=== PATIENT | male | born 1930 | race Two or more races ===

== ENCOUNTER 2019-03-15 05:29 | Inpatient (IN) | payer MEDICAID, OTHER ==
[~2019-03-15] VITALS: Ht 167.6 cm; Wt 58.5 kg
--- NOTE | 2019-03-15 05:55 | NUR ---
BIBPA. C/O "GEN WEAKNESS, +N/V. FEVER" -SOB VSS
[2019-03-15] MEDS ORDERED: ONDANSETRON HCL/PF 4 MG/2 ML VIAL IV ONE (06:00)
[2019-03-15] MEDS ORDERED: ACETAMINOPHEN ES 500 MG TABLET PO ONE (06:00)
[2019-03-15] MEDS ORDERED: ACETAMINOPHEN ES 500 MG TABLET ONE (06:08)
[2019-03-15] MEDS ORDERED: ONDANSETRON HCL/PF 4 MG/2 ML VIAL ONE (06:08)
[2019-03-15 06:12] LABS: BASOPHILS % (AUTO) 0.3 % (0.0-2.0); EOSINOPHILS % (AUTO) 0.1 % (0.0-6.0); HEMATOCRIT 32 % (39-51); HEMOGLOBIN 10.6 g/dL (13.5-17.5); LYMPHOCYTES # (AUTO) 1.1 /CMM (0.8-4.8); LYMPHOCYTES % (AUTO) 15.9 % (20.0-44.0); MEAN CORPUSCULAR HGB CONC 34 g/dl (31.0-36.0); MEAN CORPUSCULAR VOLUME 96 fL (80-96); MONOCYTES % (AUTO) 15.4 % (2.0-12.0); NEUTROPHILS # (AUTO) 4.6 /CMM (1.8-8.9); NEUTROPHILS % (AUTO) 68.3 % (43.0-81.0); PLATELET COUNT (AUTO) 142 /CMM (150-450); RED BLOOD CELL COUNT(AUTO) 3.28 MIL/uL (4.5-6.0); WHITE BLOOD COUNT (AUTO) 6.8 K/uL (4.3-11.0)
--- NOTE | 2019-03-15 06:18 | NUR ---
PT ABLE TO PROVIDE URINE SAMPLE. URINE SENT TO LAB.
[2019-03-15 06:21] LABS: CARBON DIOXIDE 28 mmol/L (21-32); CHLORIDE 106 mmol/L (98-107); CREATININE 0.6 mg/dL (0.6-1.3); GLUCOSE 118 mg/dL (74-106); POTASSIUM 3.9 mmol/L (3.5-5.1); SODIUM SERUM 141 mmol/L (136-145); UREA NITROGEN, BLOOD 21 mg/dL (7-18)
[2019-03-15 06:25] LABS: APPEARANCE,URINE Clear (CLEAR); BILIRUBIN,URINE Negative (NEGATIVE); BLOOD, URINE Moderate Ery/uL (NEGATIVE); COLOR,URINE Dark (YELLOW); KETONES,URINE Negative (NEGATIVE); LEUKOCYTE ESTERASE ,URINE Negative (NEGATIVE); NITRITE, URINE Negative (NEGATIVE); PH,URINE 5.5 (5.0-8.0); PROTEIN,URINE 30 mg/dl (NEGATIVE); UGLUCOSE Negative (NEGATIVE)
[2019-03-15] MEDS ORDERED: IV NS 0.9% 1,000 ML IV ONE (06:30)
[2019-03-15 06:34] LABS: ALANINE AMINOTRANSFERASE 56 U/L (12-78); ALBUMIN 2.5 g/dL (3.4-5.0); ALKALINE PHOSPHATASE 163 U/L (46-116); ASPARTATE AMINOTRANSFERASE 108 U/L (15-37); B-TYPE NATRIURETIC PEPTIDE 1052 PG/ML (0-125); BILIRUBIN,DIRECT 0.5 mg/dL (0.0-0.2)
[2019-03-15 06:55] LABS: BACTERIA,URINE None seen /HPF (None Seen); RBC,URINE NONE SEEN /HPF (0-2); SQUAMOUS EPITHELIAL CELL,UR Few /HPF (None Seen); WBC,URINE NONE SEEN /HPF (0-3)
--- NOTE | 2019-03-15 07:21 | NUR ---
RECEIVED PT FROM TONEY MARTINES FOR AMY, AWAITING CHEST XRAY RESULT.
[2019-03-15 07:30] LABS: LYMPHOCYTES % (MANUAL) 12 % (16-48); MONOCYTES % (MANUAL) 7 % (0-11.0); NEUTROPHILS % (MANUAL) 81 (42-76)
[2019-03-15] MEDS ORDERED: MULT-447 PO (08:02)
[2019-03-15] MEDS ORDERED: FERR325T23 PO (08:02)
[2019-03-15] MEDS ORDERED: ASCO500T9 PO (08:02)
[2019-03-15] MEDS ORDERED: CHOL100044 PO (08:02)
[2019-03-15] MEDS ORDERED: SENN-168 PO (08:02)
[2019-03-15] MEDS ORDERED: HALO1TAB5 PO (08:02)
[2019-03-15] MEDS ORDERED: ACET-2605 PO (08:02)
[2019-03-15] MEDS ORDERED: CALC-7 PO (08:02)
[2019-03-15] MEDS ORDERED: FINA5TAB11 PO (08:02)
[2019-03-15] MEDS ORDERED: DOCU-141 PO (08:02)
[2019-03-15] MEDS ORDERED: AMIN30LI27 PO (08:02)
[2019-03-15] MEDS ORDERED: POLY15DR40 EACHEYE (08:02)
--- NOTE | 2019-03-15 10:31 | NUR ---
REPORT GIVEN TO TONEY GARCIA FOR AMY.
[2019-03-15 11:00] VITALS: BP 96/57
[2019-03-15] MEDS ORDERED: POLYVINYL ALCOHOL 15 ML BOTTLE EACHEYE PRN (11:00)
--- NOTE | 2019-03-15 11:00 | NUR ---
TELE/SLUBBER MACHINE OPERATOR PATIENT ADMITTED FROM ER AND TRANSFERRED TO FLOOR VIA STRETCHER ACCOMPANIED BY EMT AND RN. NO SIGNS OF ACUTE DISTRESS. NO COMPLAIN OF PAIN OR DISCOMFORT. ON TELE MONITOR NOTED WITH SR WITH RATE OF 89. A/O X 1, NEPALI SPEAKER. ALL NEEDS ATTENDED TO AT THIS TIME. CALL LIGHT WITHIN REACH. WILL CONTINUE TO MONITOR TO ENSURE SAFETY.
[2019-03-15 11:41] VITALS: BP 96/57
[2019-03-15] MEDS ORDERED: ACETAMINOPHEN 325 MG TABLET PO PRN (12:30)
[2019-03-15] MEDS ORDERED: ONDANSETRON HCL/PF 4 MG/2 ML VIAL IVP PRN (12:30)
[2019-03-15] MEDS ORDERED: Z GUARD REMEDY 2 OZ OINT TP PRN (12:30)
[2019-03-15] MEDS ORDERED: ZOLPIDEM TARTRATE 5 MG TABLET PO PRN (12:30)
[2019-03-15] MEDS ORDERED: HYDROCODONE/APAP 5/325MG 1 EACH TABLET PO PRN (12:30)
[2019-03-15] MEDS ORDERED: MAGNESIUM HYDROXIDE 30 ML UDC PO PRN (12:30)
[2019-03-15] MEDS ORDERED: MAG HYDROX/AL HYDROX/SIMETH 30 ML UDC PO PRN (12:30)
--- NOTE | 2019-03-15 12:52 | NUR ---
TELE/RN SPOKE WITH AMADA FROM PHARM AND NOTIFIED PATIENT'S HALDOL PO NOT AVAILABLE IN BIN OR IN OMNICELL AND ZITHROMAX IVPB NOT AVAILABLE EITHER IN BIN AND DUE AT 1PM. PER AMADA WILL SEND IN HALF HOUR IF NOT AVAILABLE TO CALL HER BACK.
[2019-03-15] MEDS: IV NS 0.9% 1,000 ML IV PRN (12:56)
[2019-03-15] MEDS: PROSOURCE / PROSTAT (PYXIS) 30 ML UDC PO SCH ×2 (12:56→16:59)
[2019-03-15] MEDS: CALCIUM CARB 250MG /VITAMIN D 1 UDTAB PO SCH (12:56)
[2019-03-15] MEDS: ENOXAPARIN SODIUM 40 MG/0.4 ML DISP.SYRIN SQ SCH (12:57)
[2019-03-15] MEDS ORDERED: AZITHROMYCIN 500 MG in IV D5W 250 ML IV SCH (13:00)
[2019-03-15] MEDS: HALOPERIDOL LACTATE 10 MG/5 ML UDC PO SCH ×2 (13:13→16:59)
[2019-03-15] MEDS ORDERED: CEFTRIAXONE 1 G in IV D5W 50 ML IV SCH (14:00)
[2019-03-15 16:00] VITALS: BP 100/56
[2019-03-15] MEDS: ASCORBIC ACID 500 MG TABLET PO SCH (16:59)
[2019-03-15] MEDS: FINASTERIDE (5 MG) 5 MG TABLET PO SCH (16:59)
--- NOTE | 2019-03-15 18:33 | NUR ---
MS/RN CLOSING NOTE PATIENT IN BED IN STABLE CONDITION. A/O X 1, NO SIGNS OF ACUTE DISTRESS. NO COMPLAIN OF PAIN OR DISCOMFORT. ALL NEEDS ATTENDED TO. CALL LIGHT WITHIN REACH. WILL ENDORSE TO NEXT SHIFT FOR CONTINUITY OF CARE.
[2019-03-15 20:00] VITALS: BP 108/56
[2019-03-15] MEDS: PIPERACILLIN /TAZOBACTAM 3.375 G in IV D5W 50 ML IV SCH (20:22)
--- NOTE | 2019-03-15 20:30 | NUR ---
RN NOTES RECEIVED PT. FROM ANOTHER NURSE, PT IS AWAKE A/OX2-3, PER. STRONG (RN) PT. TEMP 99.8 AND HE GIVE TYLENOL 650MG PO, DENIES PAIN NO SOB , CALL LIGHT WITHIN REACH, SIDERAILSUPX2, CONTINUE TO MONITOR
[2019-03-15] MEDS: SENNOSIDES 8.6 MG TABLET PO SCH (21:37)
--- NOTE | 2019-03-15 22:30 | NUR ---
RN NOTES CHECKED PT. TEMPERATURE IT WENT DOWN TO 99.3, CONTINUE TO MONITOR
[2019-03-16] MEDS: PIPERACILLIN /TAZOBACTAM 3.375 G in IV D5W 50 ML IV SCH ×2 (02:16→08:49)
[2019-03-16 06:20] LABS: BASOPHILS # (AUTO) 0.1 /CMM (0.0-0.2); BASOPHILS % (AUTO) 1.5 % (0.0-2.0); EOSINOPHILS % (AUTO) 0.1 % (0.0-6.0); HEMATOCRIT 29 % (39-51); HEMOGLOBIN 9.8 g/dL (13.5-17.5); LYMPHOCYTES # (AUTO) 2.4 /CMM (0.8-4.8); LYMPHOCYTES % (AUTO) 32.3 % (20.0-44.0); MEAN CORPUSCULAR HGB CONC 34 g/dl (31.0-36.0); MEAN CORPUSCULAR VOLUME 95 fL (80-96); MONOCYTES % (AUTO) 13.4 % (2.0-12.0); NEUTROPHILS # (AUTO) 3.9 /CMM (1.8-8.9); NEUTROPHILS % (AUTO) 52.7 % (43.0-81.0); PLATELET COUNT (AUTO) 127 /CMM (150-450); RED BLOOD CELL COUNT(AUTO) 3.07 MIL/uL (4.5-6.0); WHITE BLOOD COUNT (AUTO) 7.5 K/uL (4.3-11.0)
--- NOTE | 2019-03-16 06:31 | NUR ---
RN NOTES SLEEPING BUT AROUSABLE, NO PAIN NOTED, NO SOB, MORNING CARE RENDERED, CALL LIGHT WITHIN REACH, ISDERAILSUPX2, PT. NEEDS ATTENDED
[2019-03-16 06:41] LABS: ALANINE AMINOTRANSFERASE 89 U/L (12-78); ALBUMIN 2.2 g/dL (3.4-5.0); ALKALINE PHOSPHATASE 146 U/L (46-116); ASPARTATE AMINOTRANSFERASE 285 U/L (15-37); BILIRUBIN,TOTAL 0.8 mg/dL (0.2-1.0); CALCIUM, SERUM 8.3 mg/dL (8.5-10.1); CARBON DIOXIDE 28 mmol/L (21-32); CHLORIDE 103 mmol/L (98-107); CREATININE 0.7 mg/dL (0.6-1.3); GLUCOSE 92 mg/dL (74-106); MAGNESIUM 1.8 mg/dL (1.8-2.4); POTASSIUM 3.9 mmol/L (3.5-5.1); SODIUM SERUM 137 mmol/L (136-145); TOTAL PROTEIN, SERUM 5.4 g/dL (6.4-8.2); UREA NITROGEN, BLOOD 13 mg/dL (7-18)
[2019-03-16 06:49] LABS: CHOLESTEROL 75 mg/dL (<200); HDL CHOLESTEROL 29 mg/dL (40-60); LDL 36 mg/dL (0-99); TRIGLYCERIDES 62 mg/dL (30-150)
--- NOTE | 2019-03-16 07:45 | NUR ---
RN OPENING NOTES RECEIVED PATIENT RESTING IN BED, AWAKE. A/O X 2, SWISS SPEAKING. NOT IN ANY FORM OF DISTRESS, NO SOB. NO S/S OF PAIN OR DISCOMFORT AT THIS TIME. IV ACCESS INTACT AND PATENT, NO REDNESS, NO INFILTRATION NOTED. SAFETY PRECAUTIONS IMPLEMENTED; CALL LIGHT WITHIN REACH, BED LOWEST POSITION, BED LOCKED, SIDE RAILS UP X2. WILL CONTINUE TO MONIOTR ACCORDINGLY
[2019-03-16 08:00] VITALS: BP 109/55
[2019-03-16] MEDS: PROSOURCE / PROSTAT (PYXIS) 30 ML UDC PO SCH ×3 (08:38→17:01)
[2019-03-16] MEDS: MULTIVIT W/MINERALS 1 TAB TABLET PO SCH (08:39)
[2019-03-16] MEDS: CHOLECALCIFEROL 1,000 UNIT TABLET (VIT D3) PO SCH (08:39)
[2019-03-16] MEDS: ASCORBIC ACID 500 MG TABLET PO SCH ×2 (08:39→17:00)
[2019-03-16] MEDS: DOCUSATE SODIUM 100 MG CAPSULE PO SCH (08:39)
[2019-03-16] MEDS: FERROUS SULFATE (325 MG) 325 MG/TAB TABLET PO SCH (08:39)
[2019-03-16] MEDS: HALOPERIDOL LACTATE 10 MG/5 ML UDC PO SCH ×3 (08:40→17:01)
[2019-03-16] MEDS: ENOXAPARIN SODIUM 40 MG/0.4 ML DISP.SYRIN SQ SCH (08:46)
[2019-03-16] MEDS: TOBRAMYCIN/DEXAMETH OPHTH DORPS 2.5 ML BOTTLE EACHEYE SCH ×4 (09:21→22:02)
[2019-03-16] MEDS: IV NS 0.9% 1,000 ML IV PRN (10:02)
[2019-03-16] MEDS: CALCIUM CARB 250MG /VITAMIN D 1 UDTAB PO SCH (12:56)
[2019-03-16] MEDS: PIPERACILLIN /TAZOBACTAM 3.375 G in IV D5W 100 ML IV SCH ×2 (14:15→22:02)
[2019-03-16 16:00] VITALS: BP 113/64
[2019-03-16] MEDS: FINASTERIDE (5 MG) 5 MG TABLET PO SCH (17:00)
--- NOTE | 2019-03-16 19:02 | NUR ---
RN CLOSING NOTES PATIENT IN STABLE CONDITION. ALL NEEDS ATTENDED AND PROVIDED. ALL DUE MEDS GIVEN ORDERED. ASSISTED WITH ADLS. TURNED AND REPOSITIONED PATIENT EVERY 2HRS NEEDED. KEPT PATIENT SAFE AND COMFORTABLE. BED IN LOW/LOCKED POSITION, SIDERAILSUPX2, CALL LIGHT IN REACH. ENDORSED TO NIGHT RN FOR AMY.
--- NOTE | 2019-03-16 19:29 | NUR ---
MS/RN OPENING NOTES PT RECEIVED ASLEEP, RESPONSIVE TO NAME AND TOUCH. ON 2LPM O2 VIA NC, BREATHING EVEN AND UNLABORED. NO S/S OF SOB OR PAIN AT THIS TIME. A/OX2. IV TO LEFT WRIST PATENT AND INTACT RUNNING IVF ORDERED. BED IN LOW/LOCKED POSITION WITH CALL LIGHT IN REACH. BILAT. UPPER SIDE RAILS IN PLACE AND BED ALARM ON FOR SAFETY. SEMI FOWLERS IN BED. WILL CONTINUE TO MONITOR
[2019-03-16 20:00] VITALS: BP 100/84
[2019-03-16 20:16] VITALS: BP 100/54
--- NOTE | 2019-03-16 21:04 | NUR ---
MS/RN NOTES CALLED PT'S BROTHER, MUSHTAQ HARRISON TO OBTAIN VERBAL CONSENT FOR CT ABDOMEN WWO CONTRAST PT IS CONFUSED. NO ANSWER AND UNABLE TO LEAVE VOICEMAIL.
[2019-03-16] MEDS: SENNOSIDES 8.6 MG TABLET PO SCH (22:00)
[2019-03-17] MEDS: TOBRAMYCIN/DEXAMETH OPHTH DORPS 2.5 ML BOTTLE EACHEYE SCH ×6 (01:40→21:13)
[2019-03-17] MEDS: PIPERACILLIN /TAZOBACTAM 3.375 G in IV D5W 100 ML IV SCH ×3 (05:45→21:13)
--- NOTE | 2019-03-17 06:36 | NUR ---
MS/RN CLOSING NOTES PT ASLEEP, RESPONSIVE TO NAME. TITRATED TO ROOM AIR,SPO2 94%. BREATHING EVEN AND UNLABORED. NO S/S OF SOB OR PAIN AT THIS TIME. NO FACIAL GRIMACING NOTED. IV TO LEFT HAND PATENT AND INTACT RUNNING IVF ORDERED. AFEBRILE DURING SHIFT. 0600 TEMP= 99.0F. TURNED/REPOSITIONED Q2H. HEELS OFFLOADED. HOB ELEVATED AND BILAT. UPPER SIDE RAILS IN PLACE. BED IN LOW/LOCKED POSITION WITH CALL LIGHT IN REACH. UNABLE TO OBTAIN CONSENT FROM FAMILY MEMBER FOR CT ABD. WWO CONTRAST. WILL ENDORSE TO DAY SHIFT RN AMY.
--- NOTE | 2019-03-17 07:13 | NUR ---
RN MS OPENING NOTES RECEIVED PT AWAKE IN BED IN NO ACUTE SIGNS OF DISTRESS. HOB ELEVATED. A/O X1-2. FRENCH SPEAKING, CALM, QUIET AND DENIES PAIN OR ANY DISCOMFORTS AT THIS TIME. ON ROOM AIR, BREATHING EVEN AND UNLABORED. IV ACCESS ON LEFT HAND G#22 INTACT AND PATENT, IVF OF NS @ 75ML/HR INFUSING WELL, NO S/S OF INFILTRATIONS NOTED. SAFETY MEASURES IN PLACE. BED IN LOW LOCKED POSITION WITH SR UP X2. CALL LIGHT WITHIN REACH. WILL CONTINUE TO MONITOR PT ACCORDINGLY.
[2019-03-17] MEDS: IV NS 0.9% 1,000 ML IV PRN ×2 (07:29→22:23)
[2019-03-17 08:00] VITALS: BP 104/56
--- NOTE | 2019-03-17 08:28 | NUR ---
RN NOTES CALLED PT'S BROTHER CHRISTY LANDIN AT [employer] # [phone] X 2 ALREADY THIS MORNING TO OBTAIN CONSENT FOR CT ABDOMEN WITH CONTRAST BUT HIS PHONE JUST KEEPS RINGING AND UN-ABLE TO LEAVE MESSAGE. INFORMED SUPERVISOR FABRICATION AND ASSEMBLY TE WITH ORDER TO TRY TO CALL HIM LATER THIS MORNING AND IF UN-ABLE TO REACH FAMILY, THEN CHANGE ORDER TO CT OF ABDOMEN W/O CONTRAST.
[2019-03-17] MEDS: HALOPERIDOL LACTATE 10 MG/5 ML UDC PO SCH ×3 (09:00→17:36)
[2019-03-17] MEDS: MULTIVIT W/MINERALS 1 TAB TABLET PO SCH (09:00)
[2019-03-17] MEDS: ASCORBIC ACID 500 MG TABLET PO SCH ×2 (09:00→17:35)
[2019-03-17] MEDS: FERROUS SULFATE (325 MG) 325 MG/TAB TABLET PO SCH (09:00)
[2019-03-17] MEDS: DOCUSATE SODIUM 100 MG CAPSULE PO SCH (09:00)
[2019-03-17] MEDS: PROSOURCE / PROSTAT (PYXIS) 30 ML UDC PO SCH ×3 (09:00→17:36)
[2019-03-17] MEDS: CHOLECALCIFEROL 1,000 UNIT TABLET (VIT D3) PO SCH (09:00)
[2019-03-17] MEDS: ENOXAPARIN SODIUM 40 MG/0.4 ML DISP.SYRIN SQ SCH (09:28)
--- NOTE | 2019-03-17 10:48 | NUR ---
RN NOTES TRIED TO CONTACT/CALLED PT'S BROTHER CHRISTY LANDIN BUT UNABLE TOREACH HIM AND HIS PHONE NOT ACCEPTING TO LEAVE MESSAGE. CT ABDOMEN W/O CHANGE TO WITHOUT CONTRAST PER LABORATORY EQUIPMENT CLEANER TE.
--- NOTE | 2019-03-17 11:21 | NUR ---
RN NOTES MD COLLAZO WITH ORDER TO DO MRCP FOR PT TODAY. SPOKE TO PT WITH LATVIAN SPEAKING STAFF AND PT VERBALIZED THAT HE HAS NO METAL IN THE BODY, UNABLE TO SAY IF HE HAS MRI IN THE PAST. CALLED [facility] TO VERIFY, SPOKE TO AUNG RUTH AND SAID THAT THEY THEMSELVES UNABLE TO CONTACT PT'S JAY HARRISON. I ASKED IF PT HAS METAL IN THE BODY AND SHE SAID "NONE" AND IT'S OK TO DO MRCP W/O CONTRAST.
--- NOTE | 2019-03-17 11:40 | NUR ---
RN NOTES DATA CONTROL ASSISTANT TE CAME AND EVALUATE PT WITH ORDER TO HOLD CT ABDOMEN W/O CONTRAST AND PROCEED WITH MRCP W/O CONTRAST TODAY.
[2019-03-17] MEDS: CALCIUM CARB 250MG /VITAMIN D 1 UDTAB PO SCH (12:00)
--- NOTE | 2019-03-17 12:02 | NUR ---
RN NOTES PATIENT PICKED UP BY MANAGER PULMONARY VIA WHEELCHAIR FOR MRCP W/O CONTRAST.
--- NOTE | 2019-03-17 12:48 | NUR ---
RN NOTES PT RETURNED FROM MRCP IN NO ACUTE SIGNS OF DISTRESS. MED ALERT BRACELET REMOVED BY BRIDGE CARPENTER DURING PROCEDURE. MED ALERT BRACELET PLACED BACK TO PT'S RIGHT LOWER ARM WITNESSED BY AUNG MARCH AND ONE RATE QUOTING OPERATOR DRAWING BLOOD AT THAT TIME. WILL F/U RESULTS OF MRCP.
[2019-03-17 13:19] LABS: ALBUMIN 2.2 g/dL (3.4-5.0); BILIRUBIN,DIRECT 0.3 mg/dL (0.0-0.2); BILIRUBIN,TOTAL 0.8 mg/dL (0.2-1.0); TOTAL PROTEIN, SERUM 5.5 g/dL (6.4-8.2)
[2019-03-17 16:00] VITALS: BP 100/49
--- NOTE | 2019-03-17 16:01 | NUR ---
RN NOTES DR CHEL CARTAGENA WITH ORDER TO DO HIDA SCAN FOR PATIENT. PT IS CONFUSED AND UNABLE TO SIGN CONSENT. TRIED TO CONTACT BROTHER BUT UNABLE TO REACH HIM NOR LEAVE MESSAGE ON HIS PHONE. DR CARTAGENA MADE AWRE AND INFORMED THAT 2 MD'S NEEDS TO SIGN CONSENT FOR THE PROCEDURE.
[2019-03-17] MEDS: FINASTERIDE (5 MG) 5 MG TABLET PO SCH (17:35)
--- NOTE | 2019-03-17 18:20 | NUR ---
RN NOTES CHEL CARRILLO CAME CAME, SEEN AND EVALUATED PT. NM HIDA SCAN WILL BE DONE TOMORROW. PT WILL BE NPO POST MIDNIGHT.
--- NOTE | 2019-03-17 18:45 | NUR ---
MS RN CLOSING NOTES PT IN BED AWAKE AND RESTING AT MODERATE HIGH BACKREST POSITION. A/O X1-2. ROMANSH SPEAKING. CALMED WITH PERIOD OF CONFUSION NOTED. ON ROOM AIR, TOLERATING WELL WITH NO SOB NOTED THROUGHOUT THE DAY. PT FOR NM HIDA SCAN TOMORROW, WILL ENFORCE NPO POST MIDNIGHT. IV ACCESS ON LEFT HAND G#22 INTACT AND PATENT, IVF OF NS @ 75ML/HR INFUSING WELL, NO S/S OF INFILTRATIONS NOTED. ALL NEEDS AND CARE PROVIDED WELL. SAFETY MEASURES IN PLACE. BED IN LOW LOCKED POSITION WITH SR UP X2. CALL LIGHT WITHIN REACH. WILL ENDORSE TO EDISCOVERY PROJECT MANAGER NURSE FOR AMY.
--- NOTE | 2019-03-17 19:00 | NUR ---
RN MS OPENING NOTES RECEIVED PATIENT IN BED AWAKE ALERT AND ORIENTED X1-2 , ABLE TO POINT TO MAKE NEEDS KNOWN, RESPIRATIONS EVEN AND UNLABORED WITH EQUAL RISE AND FALL OF CHEST, DENIES ANY PAIN OR DISCOMFORT AT THIS TIME, REMAINS AFEBRILE AT THIS TIME, URINAL AT BEDSIDE WITHIN REACH, IV SITE INSERTED TO RIGHT HAND #20 G INTACT AND PATENT, PATENT PULLED OUT PREVIOUS IV SITE, NO BLEEDING PRESENT, ORIENTED TO STAFF AND CALL LIGHT AND KEPT WITHIN REACH, SAFETY PRECAUTIONS IN PLACE, LOW BED AND LOCKED, BED ALARM IN PLACE, PATIENT WILL BE NPO AT MIDNIGHT MADE AWARE, REMAINS COMFORTABLE AT THIS TIME, ALL NEEDS ATTENDED WILL CONTINUE TO ADDRESS NEEDS THROUGHOUT SHIFT.
[2019-03-17 20:00] VITALS: BP 111/55
[2019-03-17] MEDS: SENNOSIDES 8.6 MG TABLET PO SCH (21:12)
[2019-03-18] MEDS: TOBRAMYCIN/DEXAMETH OPHTH DORPS 2.5 ML BOTTLE EACHEYE SCH ×6 (01:35→21:11)
[2019-03-18] MEDS: PIPERACILLIN /TAZOBACTAM 3.375 G in IV D5W 100 ML IV SCH ×3 (05:06→21:11)
--- NOTE | 2019-03-18 06:50 | NUR ---
RN MS CLOSING NOTES PATIENT IN BED AWAKE ALERT AND ORIENTED X1-2 , ABLE TO POINT TO MAKE NEEDS KNOWN, RESPIRATIONS EVEN AND UNLABORED WITH EQUAL RISE AND FALL OF CHEST, DENIES ANY PAIN OR DISCOMFORT AT THIS TIME, REMAINED AFEBRILE THROUGHOUT SHIFT, URINAL AT BEDSIDE WITHIN REACH, IV SITE RIGHT HAND #20 G INTACT AND PATENT, CALL LIGHT AND KEPT WITHIN REACH, SAFETY PRECAUTIONS IN PLACE, LOW BED AND LOCKED, BED ALARM IN PLACE, PATIENT IS NPO FOR HIDA SCAN, REMAINS COMFORTABLE AT THIS TIME, ALL NEEDS ATTENDED WILL CONTINUE TO ADDRESS NEEDS AND ENDORSE TO NEXT SHIFT. LEFT AND RIGHT HEEL ASSESSED NOTED REDNESS, PICTURES NOTED IN CHART AWAITING WOUND CARE CONSULT.
[2019-03-18 07:17] LABS: BASOPHILS % (AUTO) 0.2 % (0.0-2.0); EOSINOPHILS % (AUTO) 0.3 % (0.0-6.0); HEMATOCRIT 27 % (39-51); HEMOGLOBIN 9.2 g/dL (13.5-17.5); LYMPHOCYTES # (AUTO) 2.1 /CMM (0.8-4.8); LYMPHOCYTES % (AUTO) 42.4 % (20.0-44.0); MEAN CORPUSCULAR HGB CONC 34 g/dl (31.0-36.0); MEAN CORPUSCULAR VOLUME 94 fL (80-96); MONOCYTES # (AUTO) 0.6 /CMM (0.1-1.30); MONOCYTES % (AUTO) 12.5 % (2.0-12.0); NEUTROPHILS # (AUTO) 2.2 /CMM (1.8-8.9); NEUTROPHILS % (AUTO) 44.6 % (43.0-81.0); PLATELET COUNT (AUTO) 115 /CMM (150-450)
--- NOTE | 2019-03-18 07:30 | NUR ---
RN MS NOTES PT IN BED, AWAKE, ALERT TO SELF, VERBALLY RESPONSIVE, NO COMPLAINT OF PAIN, NOT IN DISTRESS, IV FLUIDS INFUSING WELL, CALL LIGHT WITHIN REACH, BED ALARM ON FOR SAFETY, KEPT COMFORTABLE IN BED, VITAL SIGNS STABLE.
[2019-03-18 07:42] LABS: ALANINE AMINOTRANSFERASE 88 U/L (12-78); ALKALINE PHOSPHATASE 150 U/L (46-116); ASPARTATE AMINOTRANSFERASE 154 U/L (15-37); BILIRUBIN,DIRECT 0.3 mg/dL (0.0-0.2); BILIRUBIN,TOTAL 0.7 mg/dL (0.2-1.0); CALCIUM, SERUM 8.3 mg/dL (8.5-10.1); CARBON DIOXIDE 26 mmol/L (21-32); CHLORIDE 104 mmol/L (98-107); CREATININE 0.5 mg/dL (0.6-1.3); GLUCOSE 90 mg/dL (74-106); MAGNESIUM 1.7 mg/dL (1.8-2.4); PHOSPHORUS 3.2 mg/dL (2.5-4.9); POTASSIUM 3.4 mmol/L (3.5-5.1); SODIUM SERUM 139 mmol/L (136-145); TOTAL PROTEIN, SERUM 5.2 g/dL (6.4-8.2); UREA NITROGEN, BLOOD 11 mg/dL (7-18)
[2019-03-18 08:00] VITALS: BP 126/58
[2019-03-18] MEDS: FERROUS SULFATE (325 MG) 325 MG/TAB TABLET PO SCH (09:00)
[2019-03-18] MEDS: ASCORBIC ACID 500 MG TABLET PO SCH ×2 (09:00→16:16)
[2019-03-18] MEDS: PROSOURCE / PROSTAT (PYXIS) 30 ML UDC PO SCH ×3 (09:00→16:17)
[2019-03-18] MEDS: CHOLECALCIFEROL 1,000 UNIT TABLET (VIT D3) PO SCH (09:00)
[2019-03-18] MEDS: HALOPERIDOL LACTATE 10 MG/5 ML UDC PO SCH ×4 (09:00→16:16)
[2019-03-18] MEDS: DOCUSATE SODIUM 100 MG CAPSULE PO SCH (09:00)
[2019-03-18] MEDS: MULTIVIT W/MINERALS 1 TAB TABLET PO SCH (09:00)
--- NOTE | 2019-03-18 09:00 | NUR ---
RN MS NOTES AM MEDS NON ADMIN, NPO STATUS DUE TO PLANNED HIDA SCAN TODAY.
[2019-03-18] MEDS: ENOXAPARIN SODIUM 40 MG/0.4 ML DISP.SYRIN SQ SCH (09:17)
[2019-03-18] MEDS ORDERED: POTASSIUM CHLORIDE 20 MEQ TAB.PRT.SR PO ONE (10:00)
--- NOTE | 2019-03-18 10:11 | NUR ---
WOUND CARE CONSULT: PT PRESENTS WITH INCONTINENCE AND THICKENED SCARRING WITH SOME CALLUSED SKIN ON FEET WITH PEELING FRAGILE SKIN TO HEELS. RECOMMENDATIONS MADE FOR SKIN PROTECTION. DISCUSSED WITH NURSING STAFF. CURRENT PRIMO SCORE IS 17. PT RUBS HIS FEET ON MATTRESS AT TIMES. WILL SEE PRN. SCOTT IN AGREEMENT WITH PLAN OF CARE.
[2019-03-18] MEDS: Magnesium 1GM/D5W 100ML PREMIX 100 ML IV SCH ×2 (10:38→11:38)
--- NOTE | 2019-03-18 11:45 | NUR ---
RN MS NOTES PT IN BED, AWAKE, ALERT AND VERBALLY RESPONSIVE, DENIES PAIN, NOT IN DISTRESS, SEEN BY DR. PECK, ORDERS GIVEN AND CARRIED OUT, PLAN FOR HIDA SCAN TODAY.
--- NOTE | 2019-03-18 13:00 | NUR ---
RN MS NOTES 1300 HALDOL NOT GIVEN, PT KEPT ON NPO AGAIN FOR SCHEDULED HIDA SCAN.
[2019-03-18] MEDS: CALCIUM CARB 250MG /VITAMIN D 1 UDTAB PO SCH (15:58)
[2019-03-18 16:00] VITALS: BP 125/73
[2019-03-18] MEDS: FINASTERIDE (5 MG) 5 MG TABLET PO SCH (16:16)
--- NOTE | 2019-03-18 18:45 | NUR ---
RN MS NOTES PT BACK FROM HIDA SCAN VIA WHEELCHAIR, TOLERATED PROCEDURE WELL, ASSISTED TO BED, MADE COMFORTABLE, IV FLUIDS INFUSING WELL, NO COMPLAINT OF PAIN, NOT IN DISTRESS, PM MEDS GIVEN ORDERED, ALL NEEDS ATTENDED.
--- NOTE | 2019-03-18 19:10 | NUR ---
MS RN NOTE RECEIVED PT IN STABLE CONDITION A/O X1-2, CURRENTLY AWAKE IN BED. NO SIGNS OF SOB OR DISTRESS, NO INDICATIONS OF PAIN. IV IN R FA IN PLACE. ALL CURRENT NEEDS ATTENDED TO. BED LOW, LOCKED, UPPER RAILS UP, BED ALARM ON, TO BE REPOSITIONED Q2H, AND CALL LIGHT WITHIN REACH WILL. CONT. TO MONITOR.
[2019-03-18 20:00] VITALS: BP 115/67
[2019-03-18 20:01] VITALS: BP 115/67
[2019-03-18] MEDS: SENNOSIDES 8.6 MG TABLET PO SCH (21:11)
[2019-03-19] MEDS: TOBRAMYCIN/DEXAMETH OPHTH DORPS 2.5 ML BOTTLE EACHEYE SCH ×4 (01:12→12:07)
[2019-03-19] MEDS: IV NS 0.9% 1,000 ML IV PRN (05:02)
[2019-03-19] MEDS: PIPERACILLIN /TAZOBACTAM 3.375 G in IV D5W 100 ML IV SCH (05:02)
--- NOTE | 2019-03-19 06:16 | NUR ---
MS RN NOTE PT IN STABLE CONDITION A/O X1-2, CURRENTLY AWAKE IN BED. NO SIGNS OF SOB OR DISTRESS, NO INDICATIONS OF PAIN. IV IN R FA IN PLACE WITH IV ATB INFUSING. ALL CURRENT NEEDS ATTENDED TO. BED LOW, LOCKED, UPPER RAILS UP, BED ALARM ON, PT REPOSITIONED Q2H, AND CALL LIGHT WITHIN REACH WILL. CONT. TO MONITOR AND ENDORSE TO NEXT SHIFT FOR AMY.
[2019-03-19 06:43] LABS: CALCIUM, SERUM 8.4 mg/dL (8.5-10.1); CARBON DIOXIDE 31 mmol/L (21-32); CHLORIDE 106 mmol/L (98-107); CREATININE 0.6 mg/dL (0.6-1.3); GLUCOSE 91 mg/dL (74-106); MAGNESIUM 1.9 mg/dL (1.8-2.4); POTASSIUM 3.7 mmol/L (3.5-5.1); SODIUM SERUM 140 mmol/L (136-145); UREA NITROGEN, BLOOD 7 mg/dL (7-18)
[2019-03-19 06:45] LABS: BASOPHILS % (AUTO) 0.3 % (0.0-2.0); EOSINOPHILS % (AUTO) 0.5 % (0.0-6.0); HEMATOCRIT 31 % (39-51); HEMOGLOBIN 10.1 g/dL (13.5-17.5); LYMPHOCYTES # (AUTO) 2.6 /CMM (0.8-4.8); LYMPHOCYTES % (AUTO) 49.3 % (20.0-44.0); MEAN CORPUSCULAR HGB CONC 33 g/dl (31.0-36.0); MEAN CORPUSCULAR VOLUME 94 fL (80-96); MONOCYTES # (AUTO) 0.7 /CMM (0.1-1.30); MONOCYTES % (AUTO) 12.3 % (2.0-12.0); NEUTROPHILS % (AUTO) 37.6 % (43.0-81.0); PLATELET COUNT (AUTO) 135 /CMM (150-450); RED BLOOD CELL COUNT(AUTO) 3.26 MIL/uL (4.5-6.0); WHITE BLOOD COUNT (AUTO) 5.4 K/uL (4.3-11.0)
--- NOTE | 2019-03-19 07:30 | NUR ---
RN MS NOTES PT IN BED, AWAKE, ALERT AND VERBALLY RESPONSIVE, NOT IN DISTRESS, NO SIGN OF PAIN, IV FLUIDS INFUSING WELL, ASSISTED WITH URINAL USE, CALL LIGHT WITHIN REACH, KEPT COMFORTABLE IN BED.
[2019-03-19 08:00] VITALS: BP 104/59
[2019-03-19] MEDS: DOCUSATE SODIUM 100 MG CAPSULE PO SCH (09:00)
[2019-03-19] MEDS: MULTIVIT W/MINERALS 1 TAB TABLET PO SCH (09:28)
[2019-03-19] MEDS: FERROUS SULFATE (325 MG) 325 MG/TAB TABLET PO SCH (09:28)
[2019-03-19] MEDS: ASCORBIC ACID 500 MG TABLET PO SCH (09:28)
[2019-03-19] MEDS: CHOLECALCIFEROL 1,000 UNIT TABLET (VIT D3) PO SCH (09:29)
[2019-03-19] MEDS: HALOPERIDOL LACTATE 10 MG/5 ML UDC PO SCH ×2 (09:30→12:06)
[2019-03-19] MEDS: PROSOURCE / PROSTAT (PYXIS) 30 ML UDC PO SCH ×2 (09:33→12:06)
[2019-03-19] MEDS: ENOXAPARIN SODIUM 40 MG/0.4 ML DISP.SYRIN SQ SCH (09:34)
--- NOTE | 2019-03-19 10:07 | NUR ---
RN MS NOTES PT IN BED, NOT IN DISTRESS, DENIES PAIN, SEEN BY DR. PECK, DISCHARGE ORDER GIVEN, PT INFORMED.
[2019-03-19] MEDS: CALCIUM CARB 250MG /VITAMIN D 1 UDTAB PO SCH (12:07)
--- NOTE | 2019-03-19 12:45 | NUR ---
RN MS NOTES PT IN BED, AWAKE, ALERT TO SELF, NO SIGN OF PAIN OR DISTRESS, SKIN ASSESSMENT AND PHOTOS DONE, DISCHARGE ORDER RECEIVED FROM DR. PECK, PT INFORMED, REPORT GIVEN TO FARAZ ZIEGLER OF [facility], DISCHARGE AND MEDICATION INSTRUCTIONS PROVIDED TO ADMITTING RN, ALL BELONGINGS ACCOUNTED FOR, PICKED UP BY AMBULANCE PERSONNEL, LEFT VIA GUERNEY IN STABLE CONDITION.
== END 2019-03-19 12:30 | DRG 139 ==
LOC: ER 05:32 → TELE 10:41 → MED 12:52
PROVIDERS: ADMIT Internal Medicine; ATTEND Family Medicine
DX: J15.9 Unspecified bacterial pneumonia (principal); G93.41 Metabolic encephalopathy; E44.0 Moderate protein-calorie malnutrition; I11.0 Hypertensive heart disease with heart failure; I50.32 Chronic diastolic (congestive) heart failure; D63.8 Anemia in other chronic diseases classified elsewhere; F03.90 Unspecified dementia, unspecified severity, without behavioral disturbance, psychotic disturbance, mood disturbance, and anxiety; N40.0 Benign prostatic hyperplasia without lower urinary tract symptoms; K80.10 Calculus of gallbladder with chronic cholecystitis without obstruction; F41.9 Anxiety disorder, unspecified; F29 Unspecified psychosis not due to a substance or known physiological condition; Z79.899 Other long term (current) drug therapy
CPT/HCPCS: 36415; 71045-TC; 74181-TC; 76700-TC; 78226; 80048-TC; 80053-TC; 80061-TC; 80076-TC; 81000-TC; 83605-TC; 83735-TC; 83880; 84100-TC; 84484-TC; 85025-TC; 85730-TC; 87040-TC; 87081-TC; 87086-TC; A9537; G0378; J0456; J0696; J1650; J2405; J2543; J3475; J7030; J7050; J7060